=== PATIENT | female | born 1965 | race Caucasian/White ===

== ENCOUNTER 2019-12-09 11:25 | Emergency (ER) | payer BC ==
[~2019-12-09] VITALS: Ht 172.7 cm; Wt 86.4 kg
[2019-12-09 11:30] VITALS: Ht 172.7 cm; Wt 86.4 kg
[2019-12-09] MEDS ORDERED: COUMADIN10 MG PO (11:32)
[2019-12-09] MEDS ORDERED: PROTONIX20 MG PO (11:33)
[2019-12-09] MEDS ORDERED: LIPITOR20 MG PO (11:33)
[2019-12-09] MEDS ORDERED: ZYRTEC10 MG PO (11:33)
[2019-12-09] MEDS ORDERED: SINGULAIR10 MG PO (11:33)
[2019-12-09] MEDS ORDERED: GLUCOPHAGE500 MG PO (11:33)
[2019-12-09] MEDS ORDERED: VITAMIN D1000 UNIT PO (11:33)
[2019-12-09] MEDS ORDERED: FISH OIL 1,0001 CA1 PO (11:33)
[2019-12-09 12:03] LABS: BASOPHILS 0.7 % (0-2); EOSINOPHILS 1.7 % (0-7); HEMATOCRIT 44.4 % (36.0-48.0); HEMOGLOBIN 14.4 g/dL (12-16); IMMATURE GRANULOCYTES 0.3 % (0-5); LYMPHOCYTES 35.3 % (15-50); MCH 29.9 pg (26.0-34.0); MCHC 32.4 g/dL (31.0-37.0); MCV 92.1 fL (80.0-100.0); MEAN PLATELET VOLUME 10.6 fL (7.4-10.4); PLATELET COUNT 364 10x3/uL (130-400); RBC 4.82 10x6/uL (4.00-5.40); RDW 14.8 % (11.5-14.5); WBC 12.3 10x3/uL (4.8-10.8)
[2019-12-09 12:08] LABS: ANION GAP 13.3 mmol/L (8-16); CARBON DIOXIDE 25.1 mmol/L (21.0-32.0); CREATININE - SERUM 0.9 mg/dL (0.6-1.3); POTASSIUM - SERUM 3.4 mmol/L (3.5-5.1)
[2019-12-09 12:16] LABS: ALBUMIN 3.9 g/dL (3.4-5.0); BILIRUBIN - TOTAL 0.38 mg/dL (0.2-1.3); PROTEIN - SERUM 7.5 g/dL (6.4-8.2)
[2019-12-09] MEDS ORDERED: FLOMAX0.4 MG PO (13:08)
[2019-12-09] MEDS ORDERED: ZOFRAN4 MG PO (13:09)
[2019-12-09] MEDS ORDERED: HYDROCODON-ACE1 EAC2 PO (13:10)
[2019-12-09 13:18] LABS: BACTERIA FEW /hpf (NEGATIVE); BILIRUBIN NEGATIVE (NEGATIVE); EPITHELIAL CELLS 0-5 /hpf (0-5); GLUCOSE NEGATIVE (NEGATIVE); KETONE NEGATIVE (NEGATIVE); NITRITE NEGATIVE (NEGATIVE); RED CELLS - URINE 25-50 /hpf (0-5); SPECIFIC GRAVITY 1.025 (1.005-1.020); UROBILINOGEN NORMAL (NORMAL); WHITE CELLS - URINE 0-5 /hpf (NEGATIVE)
[2019-12-09 13:19] LABS: AMORPHOUS SEDIMENT <1+ /lpf (NONE SEEN)
[2019-12-09 14:50] VITALS: BP 128/69
== END 2019-12-09 14:51 | disposition home or self-care (01) ==
LOC: D.ER 11:25
PROVIDERS: Family Medicine
DX: N20.0 Calculus of kidney (principal); E87.1 Hypo-osmolality and hyponatremia; D72.829 Elevated white blood cell count, unspecified; R10.9 Unspecified abdominal pain; E11.9 Type 2 diabetes mellitus without complications; I10 Essential (primary) hypertension; E78.5 Hyperlipidemia, unspecified; Z79.84 Long term (current) use of oral hypoglycemic drugs